=== PATIENT | female | born 1940 | race Caucasian/White ===

== ENCOUNTER 2023-10-26 19:42 | Emergency (ER) | payer MEDICARE ==
[~2023-10-26] VITALS: Ht 152.4 cm; Wt 43.5 kg
[2023-10-26] MEDS ORDERED: VENL150C2 PO (19:50)
[2023-10-26] MEDS ORDERED: ATOR10TA PO (19:50)
[2023-10-26 20:27] VITALS: BP 106/75; O2SAT 97
== END 2023-10-26 20:27 | disposition home or self-care (01) ==
LOC: ER 19:48
DX: S93.692A Other sprain of left foot, initial encounter (principal); E78.5 Hyperlipidemia, unspecified; Z98.890 Other specified postprocedural states; Z79.899 Other long term (current) drug therapy; W01.0XXA Fall on same level from slipping, tripping and stumbling without subsequent striking against object, initial encounter; Y93.89 Activity, other specified; Y92.89 Other specified places as the place of occurrence of the external cause; Y99.8 Other external cause status
CPT/HCPCS: 73630; A4606; A4663

== ENCOUNTER 2024-05-07 20:31 | Emergency (ER) | payer MEDICARE ==
[~2024-05-07] VITALS: Ht 152.4 cm; Wt 44.0 kg
[~2024-05-07 20:31] MED LIST: ATOR10TA PO; VENL150C2 PO
[2024-05-07] MEDS ORDERED: KETOROLAC TROMETHAMINE 30 MG INJ ONE (20:58)
[2024-05-07] MEDS: KETOROLAC TROMETHAMINE 30 MG INJ IM ONE (21:02)
[2024-05-07] MEDS ORDERED: LIDOCAINE 5% PATCH TD ONE (21:48)
[2024-05-07] MEDS ORDERED: LIDO1ADH82 TP (21:49)
[2024-05-07] MEDS: LIDOCAINE 5% PATCH TD ONE (21:50)
[2024-05-07 23:24] VITALS: BP 112/70; TEMP 98; O2SAT 97
== END 2024-05-07 22:40 | disposition home or self-care (01) ==
LOC: ER 20:31
DX: S20.212A Contusion of left front wall of thorax, initial encounter (principal); E78.5 Hyperlipidemia, unspecified; Z79.899 Other long term (current) drug therapy; W17.89XA Other fall from one level to another, initial encounter; Y93.89 Activity, other specified; Y92.89 Other specified places as the place of occurrence of the external cause; Y99.8 Other external cause status
CPT/HCPCS: 71101; A4606; A4663; J1885

== ENCOUNTER 2024-08-15 07:29 | Emergency (ER) | payer MEDICARE ==
[~2024-08-15] VITALS: Ht 152.4 cm; Wt 44.0 kg
[~2024-08-15 07:29] MED LIST changes: +LIDO1ADH82 TP
[2024-08-15] MEDS ORDERED: NEOM10DR11 LEFT EAR (08:06)
[2024-08-15 08:20] VITALS: BP 138/75; O2SAT 97
== END 2024-08-15 08:21 | disposition home or self-care (01) ==
LOC: ER 08:06
DX: S09.90XA Unspecified injury of head, initial encounter (principal); H60.92 Unspecified otitis externa, left ear; E78.5 Hyperlipidemia, unspecified; Z79.899 Other long term (current) drug therapy; W22.8XXA Striking against or struck by other objects, initial encounter; Y93.89 Activity, other specified; Y92.89 Other specified places as the place of occurrence of the external cause; Y99.8 Other external cause status
CPT/HCPCS: A4606; A4663

== ENCOUNTER 2024-11-09 16:58 | Emergency (ER) | payer MEDICARE ==
[~2024-11-09] VITALS: Ht 152.4 cm; Wt 44.0 kg
[~2024-11-09 16:58] MED LIST changes: +NEOM10DR11 LEFT EAR
[2024-11-09 17:33] LABS: BASOPHILS % (AUTO) 0.2 % (0.0-2.0); DIFFERENTIAL COMMENT 1; EOSINOPHILS # (AUTO) 0.4 K/uL (0.0-0.7); EOSINOPHILS % (AUTO) 6.8 % (0.0-7.0); HEMATOCRIT 40.5 % (31.2-41.9); HEMOGLOBIN 13.8 g/dL (10.9-14.3); LYMPHOCYTES # (AUTO) 1.1 K/uL (0.8-4.8); LYMPHOCYTES % (AUTO) 19.4 % (20.5-51.5); MEAN CORPUSCULAR HEMOGLOBIN 30.5 uug (24.7-32.8); MEAN CORPUSCULAR HGB CONC 34 g/dL (32.3-35.6); MEAN CORPUSCULAR VOLUME 89.4 fL (75.5-95.3); MONOCYTES # (AUTO) 1.1 K/uL (0.1-1.30); MONOCYTES % (AUTO) 19.2 % (0.0-11.0); NEUTROPHILS # (AUTO) 3.1 K/uL (1.8-8.9); NEUTROPHILS % (AUTO) 54.4 % (38.5-71.5); PLATELET COUNT (AUTO) 140 K/uL (179-408); RED BLOOD CELL COUNT(AUTO) 4.53 MIL/uL (3.63-4.92); RED CELL DISTRIBUTION WIDTH 14.7 % (12.3-17.7); WHITE BLOOD COUNT (AUTO) 5.6 K/uL (3.8-11.8)
[2024-11-09 17:35] LABS: BASOPHILS % (MANUAL) 1 % (0-2); EOSINOPHILS % (MANUAL) 4 % (0-8); LYMPHOCYTES % (MANUAL) 22 % (20-40); MONOCYTES % (MANUAL) 23 % (2-10); NEUTROPHILS % (MANUAL) 50 % (42-75)
[2024-11-09] MEDS ORDERED: GUAI5SYR4 PO (18:56)
[2024-11-09 19:05] VITALS: BP 123/87; O2SAT 96
== END 2024-11-09 19:06 | disposition home or self-care (01) ==
LOC: ER 16:58
DX: J20.8 Acute bronchitis due to other specified organisms (principal); B97.89 Other viral agents as the cause of diseases classified elsewhere; E78.5 Hyperlipidemia, unspecified; Z79.899 Other long term (current) drug therapy
CPT/HCPCS: 36415; 71045; 85025; A4606; A4663